=== PATIENT | male | born 1975 | race Caucasian/White ===

== ENCOUNTER → 2017-11-20 | Outpatient (CLI) | payer BC | LOC: M RAD 09:50 | DX: G50.1 Atypical facial pain (principal) | CPT/HCPCS: 70486 ==

== ENCOUNTER → 2018-12-06 | Outpatient (CLI) | payer BC ==
--- NOTE | 2018-12-06 17:48 | REP ---
Right wrist series: Four views. History: Right wrist pain. Findings: Four views right wrist demonstrate moderate swelling dorsally over the carpus on the lateral radiograph. Bones, joints, and soft tissues are otherwise unremarkable. No fractures seen. Impression: No fracture or subluxation seen. Dorsal soft tissue swelling. Electronically Signed by Evgeny Adler MD 12/06/2018 05:40 P
== END ==
LOC: M LRY 16:56
PROVIDERS: ATTEND Physician Assistant Medical
DX: M25.431 Effusion, right wrist (principal); M25.531 Pain in right wrist

== ENCOUNTER → 2024-04-25 | Outpatient (REF) | payer BC ==
[2024-04-25 10:05] LABS: APPEARANCE, URINE CLEAR (CLEAR); BACTERIA, URINE AUTO NEGATIVE (NEGATIVE); BILIRUBIN, URINE AUTO NEGATIVE (NEGATIVE); BLOOD, URINE BLOOD NEGATIVE (NEGATIVE); COLOR, URINE YELLOW (YELLOW); GLUCOSE, URINE (UA) AUTO NEGATIVE (NEGATIVE); KETONE, URINE AUTO NEGATIVE (NEGATIVE); LEUKOCYTE ESTERASE, URINE AUTO NEGATIVE (NEGATIVE); NITRITE, URINE AUTO NEGATIVE (NEGATIVE); PROTEIN, URINE AUTO NEGATIVE (NEGATIVE); RBC, URINE AUTO 1 /HPF (0-3); SPECIFIC GRAVITY URINE AUTO 1.018 (1.002-1.035); SQUAMOUS EPITHELIAL CELL UR AU 0 /HPF (0-6); UROBILINOGEN, URINE AUTO 0.2 mg/dL (0.0-2.0); WBC, URINE AUTO 0 /HPF (0-3)
== END ==
LOC: M SMT 09:42
PROVIDERS: ATTEND Nurse Practitioner Family
DX: R31.29 Other microscopic hematuria (principal)